=== PATIENT | male | born 1960 | race Caucasian/White ===

== ENCOUNTER 2023-06-30 13:49 | Outpatient (OUT) | payer BC, SELFPAY ==
--- NOTE | 2023-06-30 13:58 | XR_ITS ---
The [address] [address] Patient Name: TAB GREENBERG MRN: [id number] date: 1960 Sex: M Assigned Patient Location: [facility] Current Patient Location: Accession/Order Number: [id number] Exam Date: 06/30/2023 14:15 Report Date: 07/01/2023 06:17 At the request of: MEGHANN BEAN Procedure: XR abdomen 1V EXAMINATION: XR abdomen 1V HISTORY: Left Ureteral Stone N20.1 COMPARISON: XR KUB 06/20/2022 FINDINGS: KIDNEY/URETER - RIGHT: No visible renal or ureteral calcifications. KIDNEY/URETER - LEFT: No visible renal or ureteral calcifications. PELVIS: No visible ureteral stones. BOWEL: No abnormal dilation or deviation. BONES: Prior left hip replacement. OTHER: Negative. No abnormal gaseous collections. XR/XR abdomen 1V IMPRESSION: 1. No appreciable urinary tract calculi. Evaluation of kidneys is limited by dense overlying bowel content. Electronically authenticated by: ROB YE Date: 07/01/2023 06:17
== END 2023-06-30 13:50 | disposition home or self-care (01) ==
LOC: RAD 13:53
PROVIDERS: PCP Family Medicine; Visit Provider Urology
DX: N20.0 Calculus of kidney (principal); N20.1 Calculus of ureter
CPT/HCPCS: 74018

== ENCOUNTER 2023-09-13 19:45 | Emergency (ER) | payer BC, SELFPAY ==
[2023-09-13 19:54] VITALS: BP 166/94; PULSE 91; TEMP 36.8; O2SAT 96; BMI 36.4
--- NOTE | 2023-09-13 20:11 | XR_ITS ---
The [address] [address] Patient Name: TAB GREENBERG MRN: [id number] date: 1960 Sex: M Assigned Patient Location: ER Current Patient Location: ER Accession/Order Number: [id number] Exam Date: 09/13/2023 20:30 Report Date: 09/13/2023 21:06 At the request of: BENEDICTO MARKER Procedure: XR knee LT 4V EXAM: XR knee LT 4V , 09/13/2023 HISTORY: knee injury COMPARISON: None. TECHNIQUE: X-rays of the left knee 4 views. FINDINGS: Mild to moderate left knee joint effusion. Small bony density seen anterior to the distal femur could represent a fracture fragment. Recommend clinical correlation and CT scan as indicated. Mild soft tissue swelling anteriorly. No other fracture or dislocation. The bones are well-mineralized. XR/XR knee LT 4V IMPRESSION: Mild to moderate left knee effusion and anterior soft tissue swelling, with small fracture fragment. Recommend clinical correlation and CT scan as indicated. Electronically authenticated by: BINU LAWTON Date: 09/13/2023 21:06
--- NOTE | 2023-09-13 20:12 | ED_ITS ---
HPI HPI - Extremity Injury (Lower) General Chief Complaint: Extremity Injury, Lower Stated Complaint: Lower Extremity Injury Time Seen by Provider: 09/13/23 19:53 Source: patient Mode of arrival: walk-in Limitations: no limitations History of Present Illness HPI Narrative: This 62-year-old male presents for evaluation of left knee pain and swelling. 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 He felt a snapping sensation in his left knee and since then has not been able to weight-bear. He denies falling or striking his head. He has tenderness in the left knee with any range of motion but does not have any pain if he is staying still. He does have an appointment with Dr. Gandhi in [place] and has had hip surgery in the past with Dr. Vaughan. He denies any numbness or tingling. He did have some pain in the mid to distal humerus initially but that has since resolved. Related Data Allergies Allergy/AdvReac Type Severity Reaction Status Date / Time No Known Drug Allergies Allergy Verified 09/13/23 19:58 Opioid HPI Opioid Management Most Recent Pain and Opioid Data: No Data to Display Review of Systems ROS Status of ROS 10 or more systems reviewed and unremark able except as noted in history and below Exam Narrative Exam Narrative: Vital signs and Nursing Notes reviewed: Blood pressure is elevated at 166/94, he is not hypoxic with pulse ox of 96% on room air General: Awake, alert, oriented, no acute distress, lying comfortably on the stretcher HEENT: Normocephalic atraumatic, mucous membranes are moist and pink, eyes are clear, normal conjunctiva, vision is grossly intact Chest: Lungs are clear to auscultation with good air entry, there is no wheezing rhonchi or rales appreciated no accessory muscle use, patient is speaking in complete sentences-no chest wall tenderness to palpation CVS: Regular rate and rhythm S1-S2, no murmurs rubs or gallops, pulses are brisk and equal bilaterally Extremities: Left knee is diffusely tender with a large effusion noted proximally and medially to the left knee. Range of motion was minimal due to patient's pain. There is no bony tenderness of the lower leg or femur. There is no palpable mass concerning for muscle rupture. Foot is warm and sensate. Patient is able to move all of his toes. There is no tenderness to the foot, ankle or lower leg including the proximal fibula. Skin: Normal in appearance without rash,pallor, petechiae or purpura Neuro: No focal deficits Constitutional Vital Signs, click to edit/add: Last Vital Signs Temp 98.2 F 09/13/23 19:54 Pulse 91 H 09/13/23 19:54 Resp 18 09/13/23 19:54 BP 166/94 H 09/13/23 19:54 Pulse Ox 96 09/13/23 19:54 O2 Del Method Room Air 09/13/23 19:54 Course Vital Signs Vital signs: Vital Signs Temperature 98.2 F 09/13/23 19:54 Pulse Rate 91 H 09/13/23 19:54 Respiratory Rate 18 09/13/23 19:54 Blood Pressure 166/94 H 09/13/23 19:54 Pulse Oximetry 96 09/13/23 19:54 Oxygen Delivery Method Room Air 09/13/23 19:54 Temperature 98.2 F 09/13/23 19:54 Pulse Rate 91 H 09/13/23 19:54 Respiratory Rate 18 09/13/23 19:54 Blood Pressure 166/94 H 09/13/23 19:54 Pulse Oximetry 96 09/13/23 19:54 Oxygen Delivery Method Room Air 09/13/23 19:54 MDM - Extremity Injury (Lower) MDM Narrative Medical decision making narrative: This 62-year-old male presents for evaluation of left knee pain and swelling after getting his left leg caught on a skid kiln car unloader while he was getting down with his right leg. He did not fall or injure his head or neck. He has a large effusion at the medial proximal aspect of the left knee and extremely limited range of motion. He was medicated emergency department with a dose of IM Motrin and p.o. Zofran. X-ray of the extremity shows an effusion and a small fracture fragment with recommendation for a CT scan. The results of the x-ray were discussed with the patient and his . He does not wish to have a CT scan done at this time. He will follow-up with Dr. Gandhi, his orthopedic surgeon in [place] for further evaluation and treatment. His pain is starting to recur after the morphine started to wear off and he was remedicated with a dose of Percocet in the emergency department and will be discharged home with 2 Percocet to get him through the night and a prescription for Percocet, ibuprofen, Colace and Zofran. He was placed in a knee immobilizer prior to discharge and has crutches upon arrival. Medical Records Medical records narrative: The [address] [address] XRay Report Signed Patient: TAB GREENBERG MR#: [id number] : 1960 Acct:[id number] Age/Sex: 62 / M ADM Date: 09/13/23 Loc: ER Attending Dr: Ordering Physician: Mine Hollingsworth Date of Service: 09/13/23 Procedure(s): XR knee LT 4V Accession Number(s): [id number] cc: FLOR DENNEY ; Mine Hollingsworth~ The [address] [address] Patient Name: TAB GREENBERG MRN: [facility]:[id number] date: 1960 Sex: M Assigned Patient Location: ER Current Patient Location: ER Accession/Order Number: [id number] Exam Date: 09/13/2023 20:30 Report Date: 09/13/2023 21:06 At the request of: MINE HOLLINGSWORTH Procedure: XR knee LT 4V EXAM: XR knee LT 4V , 09/13/2023 HISTORY: knee injury COMPARISON: None. TECHNIQUE: X-rays of the left knee 4 views. FINDINGS: Mild to moderate left knee joint effusion. Small bony density seen anterior to the distal femur could represent a fracture fragment. Recommend clinical correlation and CT scan as indicated. Mild soft tissue swelling anteriorly. No other fracture or dislocation. The bones are well-mineralized. XR/XR knee LT 4V IMPRESSION: Mild to moderate left knee effusion and anterior soft tissue swelling, with small fracture fragment. Recommend clinical correlation and CT scan as indicated. Electronically authenticated by: BINU LAWTON Date: 09/13/2023 21:06 Discharge Plan Discharge Stand Alone Forms: Portal Instructions Chief Complaint: Extremity Injury, Lower Clinical Impression: Acute internal derangement of knee Patient Disposition: Home, Self-Care Time of Disposition Decision: 21:22 Condition: Fair Print Language: Thai Instructions: ACL Injury (ED) Additional Instructions: Follow-up with orthopedics as soon as possible. Use pain medications as needed. Use ice and knee immobilizer and crutches to prevent worsening or more severe injury. Referrals: FLOR DENNEY [Primary Care Provider] - 1 week Branden Gandhi MD [Physician] - 1 week
[2023-09-13] MEDS: ONDANSETRON 4 MG RAPDIS TABLET SL ×2 (20:42→21:40)
[2023-09-13] MEDS: MORPHINE SULFATE 4 MG/ML VIAL IM (20:42)
[2023-09-13] MEDS: OXYCODONE HCL/ACETAMINOPHEN 5MG/325MG 1 TAB PO (21:39)
[2023-09-13] MEDS: OXYCODONE HCL/ACETAMINOPHEN 5MG/325MG 2 TAB PO (21:40)
== END 2023-09-13 22:01 | disposition home or self-care (01) ==
PROVIDERS: Emergency Provider Emergency Medicine; PCP Family Medicine
DX: M23.92 Unspecified internal derangement of left knee (principal)
CPT/HCPCS: 73564; 96372; 99284; J2270; Q0162